=== PATIENT | female | born 1935 | race Caucasian/White ===

== ENCOUNTER 2024-02-24 11:18 | Inpatient (IN) | payer OTHER ==
[~2024-02-24] VITALS: Ht 147.3 cm; Wt 47.6 kg
[2024-02-24 11:30] VITALS: BP_SYST 109; PULSE 62; RESP 16; TEMP 98.1; O2SAT 99
[2024-02-24 12:26] LABS: BILIRUBIN,URINE NEGATIVE (NEGATIVE); BLOOD, URINE NEGATIVE (NEGATIVE); CLARITY/URINE CLEAR (CLEAR); COLOR,URINE YELLOW (YELLOW); GLUCOSE,URINE NEGATIVE (NEGATIVE); KETONES,URINE NEGATIVE (NEGATIVE); LEUKOCYTE ESTERASE ,URINE NEGATIVE (NEGATIVE); NITRITE, URINE NEGATIVE (NEGATIVE); PROTEIN URINE NEGATIVE (NEGATIVE); UROBILINOGEN,URINE 0.2 (0.2-1.0)
[2024-02-24 12:36] LABS: BASOPHILS # (AUTO) 0.1 K/uL (0.0-0.2); BASOPHILS % (AUTO) 0.8 % (0.0-2.0); EOSINOPHILS # (AUTO) 0.2 K/uL (0.0-0.4); EOSINOPHILS % (AUTO) 2.7 % (0.0-4.0); HEMATOCRIT 43.6 % (36-48); HEMOGLOBIN 14.8 g/dL (12.0-16.0); LYMPHOCYTES # (AUTO) 1.3 K/uL (1.0-5.5); LYMPHOCYTES % (AUTO) 14.3 % (20.5-51.5); MEAN CORPUSCULAR HEMOGLOBIN 31 pg (27-31); MEAN CORPUSCULAR HGB CONC 34 % (32-36); MEAN CORPUSCULAR VOLUME 92 fL (79.0-98.0); MONOCYTES # (AUTO) 0.7 K/uL (0.0-1.0); NEUTROPHILS # (AUTO) 6.6 K/uL (1.8-7.7); NEUTROPHILS % (AUTO) 74.2 % (40.0-70.0); PLATELET COUNT (AUTO) 285 K/uL (130-430); RED BLOOD CELL COUNT(AUTO) 4.77 MIL/uL (4.2-6.2); RED CELL DISTRIBUTION WIDTH 14.9 % (9.0-15.0); WHITE BLOOD COUNT (AUTO) 8.9 K/uL (4.8-10.8)
[2024-02-24 12:57] LABS: PROTHROMBIN TIME 10.5 SECS (9.5-12.5)
[2024-02-24 13:04] LABS: ANION GAP 10 (5-15); CALCIUM 9.3 mg/dL (8.4-11.0); CARBON DIOXIDE 25 mmol/L (23-29); CHLORIDE 104 mmol/L (98-107); CREATININE 0.86 mg/dL (0.55-1.30); GLUCOSE 92 mg/dL (74-106); SODIUM SERUM 139 mmol/L (136-145); UREA NITROGEN, BLOOD 16 mg/dL (8-21)
[2024-02-24 13:05] LABS: POTASSIUM 4.4 mmol/L (3.5-5.1)
[2024-02-24 13:19] LABS: ALANINE AMINOTRANSFERASE 22 U/L (12-78); ALBUMIN 3.8 g/dL (3.4-4.8); ASPARTATE AMINOTRANSFERASE 30 U/L (10-37); BILIRUBIN,DIRECT 0.1 mg/dL (0.0-0.3); TOTAL BILIRUBIN 0.7 mg/dL (0.0-1.0); TOTAL PROTEIN, SERUM 7.6 g/dL (6.4-8.3)
[2024-02-24] MEDS ORDERED: AMLO10TA88 PO (13:35)
[2024-02-24] MEDS ORDERED: CARV6.2554 PO (13:35)
[2024-02-24] MEDS ORDERED: APIX2.5T PO (13:35)
[2024-02-24] MEDS ORDERED: LISI40TA13 PO (13:35)
[2024-02-24] MEDS ORDERED: ATOR20TA64 PO (13:35)
[2024-02-24] MEDS ORDERED: PENT400T17 PO (13:37)
[2024-02-24] MEDS ORDERED: DORZ10DR8 EACH EYE (13:37)
[2024-02-24] MEDS ORDERED: LATA2.5D14 EACH EYE (13:37)
[2024-02-24] MEDS: APIXABAN 2.5 MG TABLET PO SCH (21:52)
[2024-02-25 08:00] VITALS: BP_SYST 84; PULSE 69; RESP 18; TEMP 98; O2SAT 97
[2024-02-25 10:00] VITALS: BP_SYST 84; PULSE 69; RESP 18; TEMP 97.9; O2SAT 97
[2024-02-25 11:11] VITALS: BP_SYST 97; PULSE 71; RESP 16; TEMP 96.7; O2SAT 100
[2024-02-25 15:59] VITALS: BP_SYST 84; PULSE 69; RESP 18; TEMP 97.9; O2SAT 97
[2024-02-25 16:43] VITALS: BP_SYST 103; PULSE 76; RESP 16; TEMP 97.8; O2SAT 93
[2024-02-25 20:00] VITALS: BP_SYST 97; PULSE 71; RESP 18; TEMP 98.4; O2SAT 95; O2SAT 97
[2024-02-25] MEDS ORDERED: APIXABAN 2.5 MG TABLET PO SCH (21:00)
[2024-02-25] MEDS: CARVEDILOL 6.25 MG TABLET (COREG) PO SCH (21:00)
[2024-02-25] MEDS: DORZOLAMIDE 2% OPHTHALMIC SOLN 5ML OP SCH (21:00)
[2024-02-25] MEDS: LATANOPROST 2.5 ML DROPS (XALATAN) EACH EYE SCH (21:00)
[2024-02-25] MEDS: PENTOXIFYLLINE 400 MG TABLET.SA (TRENtal) PO SCH (21:59)
[2024-02-26 05:29] LABS: BASOPHILS # (AUTO) 0.1 K/uL (0.0-0.2); BASOPHILS % (AUTO) 0.6 % (0.0-2.0); EOSINOPHILS # (AUTO) 0.3 K/uL (0.0-0.4); EOSINOPHILS % (AUTO) 3.2 % (0.0-4.0); HEMATOCRIT 39.3 % (36-48); HEMOGLOBIN 13.4 g/dL (12.0-16.0); LYMPHOCYTES # (AUTO) 1.8 K/uL (1.0-5.5); LYMPHOCYTES % (AUTO) 17.2 % (20.5-51.5); MEAN CORPUSCULAR HEMOGLOBIN 31 pg (27-31); MEAN CORPUSCULAR HGB CONC 34 % (32-36); MEAN CORPUSCULAR VOLUME 91 fL (79.0-98.0); NEUTROPHILS # (AUTO) 7.4 K/uL (1.8-7.7); PLATELET COUNT (AUTO) 254 K/uL (130-430); RED BLOOD CELL COUNT(AUTO) 4.34 MIL/uL (4.2-6.2); RED CELL DISTRIBUTION WIDTH 14.9 % (9.0-15.0); WHITE BLOOD COUNT (AUTO) 10.6 K/uL (4.8-10.8)
[2024-02-26 05:57] LABS: ANION GAP 10 (5-15); CALCIUM 8.6 mg/dL (8.4-11.0); CARBON DIOXIDE 23 mmol/L (23-29); CHLORIDE 106 mmol/L (98-107); CREATININE 0.83 mg/dL (0.55-1.30); GLUCOSE 90 mg/dL (74-106); POTASSIUM 3.5 mmol/L (3.5-5.1); SODIUM SERUM 139 mmol/L (136-145); UREA NITROGEN, BLOOD 13 mg/dL (8-21)
[2024-02-26 08:08] VITALS: BP_SYST 111; PULSE 78; RESP 16; TEMP 96.5; O2SAT 98
[2024-02-26] MEDS: ATORVASTATIN 20 MG TABLET PO SCH (09:23)
[2024-02-26] MEDS: amLODIPine BESYLATE 10 MG TABLET PO SCH (09:25)
[2024-02-26] MEDS: lisinopriL 20 MG TABLET PO SCH (09:26)
[2024-02-26 11:30] VITALS: BP_SYST 88; PULSE 71; RESP 14; TEMP 97.1; O2SAT 94
[2024-02-26 15:02] VITALS: BP_SYST 83; PULSE 75; RESP 16; TEMP 97.8; O2SAT 94
[2024-02-26 19:00] VITALS: BP_SYST 96; PULSE 76; RESP 16; TEMP 98.2; O2SAT 96
[2024-02-26 20:00] VITALS: BP_SYST 94; PULSE 76; RESP 16; TEMP 98.2; O2SAT 98
[2024-02-26] MEDS: NS 500 ML IV ONE (22:49)
[2024-02-27] VITALS (9 sets, daily range): BP systolic 96–153; PULSE 60–107; RESP 16–18; TEMP 97.3–98.8; O2SAT 94–97
[2024-02-27 06:19] LABS: BASOPHILS # (AUTO) 0.1 K/uL (0.0-0.2); BASOPHILS % (AUTO) 0.6 % (0.0-2.0); EOSINOPHILS # (AUTO) 0.3 K/uL (0.0-0.4); EOSINOPHILS % (AUTO) 2.4 % (0.0-4.0); HEMOGLOBIN 12.2 g/dL (12.0-16.0); LYMPHOCYTES # (AUTO) 1.7 K/uL (1.0-5.5); MEAN CORPUSCULAR HEMOGLOBIN 31 pg (27-31); MEAN CORPUSCULAR HGB CONC 34 % (32-36); MEAN CORPUSCULAR VOLUME 91 fL (79.0-98.0); MONOCYTES # (AUTO) 1.2 K/uL (0.0-1.0); MONOCYTES % (AUTO) 11.1 % (1.7-9.3); NEUTROPHILS # (AUTO) 7.3 K/uL (1.8-7.7); NEUTROPHILS % (AUTO) 69.9 % (40.0-70.0); PLATELET COUNT (AUTO) 237 K/uL (130-430); RED BLOOD CELL COUNT(AUTO) 3.96 MIL/uL (4.2-6.2); RED CELL DISTRIBUTION WIDTH 14.5 % (9.0-15.0); WHITE BLOOD COUNT (AUTO) 10.4 K/uL (4.8-10.8)
[2024-02-27 07:14] LABS: ALANINE AMINOTRANSFERASE 14 U/L (12-78); ALBUMIN 2.6 g/dL (3.4-4.8); ANION GAP 9 (5-15); ASPARTATE AMINOTRANSFERASE 18 U/L (10-37); CALCIUM 8.2 mg/dL (8.4-11.0); CARBON DIOXIDE 23 mmol/L (23-29); CHLORIDE 106 mmol/L (98-107); CREATININE 1.02 mg/dL (0.55-1.30); GLUCOSE 85 mg/dL (74-106); POTASSIUM 3.7 mmol/L (3.5-5.1); SODIUM SERUM 138 mmol/L (136-145); TOTAL BILIRUBIN 0.6 mg/dL (0.0-1.0); UREA NITROGEN, BLOOD 20 mg/dL (8-21)
[2024-02-27] MEDS ORDERED: amLODIPine BESYLATE 5 MG TABLET PO SCH (09:00)
[2024-02-27] MEDS ORDERED: PRED10TA PO (11:10)
== END 2024-02-27 15:20 | disposition home health service (06) | DRG 74 ==
LOC: SED 11:18 → STU 13:42 → OBSVTOIN 13:42 → STU 13:46 → INTOOBSV 02-26 14:02 → OBSVTOIN 02-26 14:02
PROVIDERS: ADMIT Specialist; ATTEND Specialist
DX: G51.0 Bell's palsy (principal); G45.9 Transient cerebral ischemic attack, unspecified; F03.90 Unspecified dementia, unspecified severity, without behavioral disturbance, psychotic disturbance, mood disturbance, and anxiety; I10 Essential (primary) hypertension; I48.91 Unspecified atrial fibrillation; Z88.8 Allergy status to other drugs, medicaments and biological substances; Z79.899 Other long term (current) drug therapy; K11.5 Sialolithiasis
CPT/HCPCS: 36415; 70450-TC; 70486; 70551; 71045; 80048; 80053; 80076; 81001; 81003; 82948; 83880; 84484; 85025; 85610; 85730; 86886; 86900; 86901; 93306; 97110-GP; 97112-GP; 97116-GP; 97530-GP; 99291; G0378